=== PATIENT | male | born 1950 | race Caucasian/White ===

== ENCOUNTER 2021-07-11 09:36 | Inpatient (IN) | payer MEDICARE ==
[~2021-07-11] VITALS: Ht 185.4 cm; Wt 80.7 kg
[~2021-07-11 09:36] MED LIST: AMIODARONE HCL200 MG PO; ASPIRIN 325MG325 MG PO; CRESTOR 10 MG T10 MG PO; DIGOXIN125 MCG PO; FAMOTIDINE20 MG PO; FERROUS SULFAT325 M2 PO; FUROSEMIDE40 MG PO; INCRUSE ELLI62.5 MCG INH; JARDIANCE10 MG PO; LISINOPRIL5 MG PO; PROAIR HFA8.5 GM INH; ST. JOSEPH ASPI81 M1 PO; VITAMIN B-121000 MCG PO; ZESTRIL2.5 MG PO
[2021-07-11 10:31] LABS: HEMOGLOBIN 12.6 gm/dl (14.0-17.5); RED BLOOD COUNT 4.5 M/UL (4.20-5.50); WHITE BLOOD COUNT 7.3 K/UL (4.5-11.0)
[2021-07-11] MEDS ORDERED: SEROQUEL TAB 2525 MG PO (14:44)
[2021-07-11] MEDS ORDERED: ASPIRIN EC81 MG PO (14:46)
[2021-07-12 02:25] LABS: HEMOGLOBIN 11.8 gm/dl (14.0-17.5); RED BLOOD COUNT 4.26 M/UL (4.20-5.50); WHITE BLOOD COUNT 6.3 K/UL (4.5-11.0)
[2021-07-13 02:14] LABS: HEMOGLOBIN 12.5 gm/dl (14.0-17.5); RED BLOOD COUNT 4.57 M/UL (4.20-5.50); WHITE BLOOD COUNT 7.1 K/UL (4.5-11.0)
[2021-07-14 02:15] LABS: HEMOGLOBIN 11.7 gm/dl (14.0-17.5); RED BLOOD COUNT 4.21 M/UL (4.20-5.50)
[2021-07-15 02:20] LABS: HEMOGLOBIN 12.3 gm/dl (14.0-17.5); RED BLOOD COUNT 4.41 M/UL (4.20-5.50)
[2021-07-17] MEDS ORDERED: CLOPIDOGREL75 MG PO (12:54)
[2021-07-17] MEDS ORDERED: ATORVASTATIN CA20 MG PO (12:54)
== END 2021-07-17 14:50 | disposition home or self-care (01) | DRG 286 ==
LOC: ER1 09:36 → CCU 10:58 → PROG CARE 10:58 → CDU 10:58 → CCU 12:03 → PROG CARE 07-12 13:17
PROVIDERS: Emergency Medicine; Internal Medicine; Internal Medicine Nephrology; ADMIT Internal Medicine
PROC: 4A023N7 Measurement of Cardiac Sampling and Pressure, Left Heart, Percutaneous Approach (ICD-10-PCS; principal; 2021-07-11)
PROC: B2111ZZ Fluoroscopy of Multiple Coronary Arteries using Low Osmolar Contrast (ICD-10-PCS; 2021-07-11)
PROC: B2181ZZ Fluoroscopy of Left Internal Mammary Bypass Graft using Low Osmolar Contrast (ICD-10-PCS; 2021-07-11)
DX: R00.1 Bradycardia, unspecified (principal); G93.41 Metabolic encephalopathy; N17.0 Acute kidney failure with tubular necrosis; Z20.822 Contact with and (suspected) exposure to COVID-19; I13.0 Hypertensive heart and chronic kidney disease with heart failure and stage 1 through stage 4 chronic kidney disease, or unspecified chronic kidney disease; N17.9 Acute kidney failure, unspecified; I50.22 Chronic systolic (congestive) heart failure; D68.9 Coagulation defect, unspecified; I25.10 Atherosclerotic heart disease of native coronary artery without angina pectoris; N18.32 Chronic kidney disease, stage 3b; D50.9 Iron deficiency anemia, unspecified; I27.20 Pulmonary hypertension, unspecified; J43.9 Emphysema, unspecified; J60 Coalworker's pneumoconiosis; I25.5 Ischemic cardiomyopathy; I08.1 Rheumatic disorders of both mitral and tricuspid valves; K21.9 Gastro-esophageal reflux disease without esophagitis; E11.22 Type 2 diabetes mellitus with diabetic chronic kidney disease; I48.0 Paroxysmal atrial fibrillation; Z79.01 Long term (current) use of anticoagulants; Z95.1 Presence of aortocoronary bypass graft; Z79.82 Long term (current) use of aspirin; Z95.2 Presence of prosthetic heart valve; Z87.891 Personal history of nicotine dependence; Z88.8 Allergy status to other drugs, medicaments and biological substances; Z88.6 Allergy status to analgesic agent
CPT/HCPCS: 36415; 70450; 70551; 71045; 80048; 80053; 80061; 80162; 80307; 81001; 82533; 82550; 82553; 82570; 82962; 83735; 83880; 84156; 84439; 84443; 84484; 85025; 85027; 85610; 85730; 87086; 92507; 92526; 92610; 93005; 94640; 94664; 94760; 96374; 97110-GP-CQ; 97116; 97116-GP-CQ; 97162; 97165; 99285; C1769; J0461; J1265; J1644; J2060; J2370; J7030; J7040; Q9965; U0002

== ENCOUNTER → 2021-11-03 | Outpatient (CLI) | payer MEDICARE ==
[~2021-11-03] MED LIST changes: +ASPIRIN EC81 MG PO; +ATORVASTATIN CA20 MG PO; +CLOPIDOGREL75 MG PO; +SEROQUEL TAB 2525 MG PO
== END ==
LOC: HEART 5 12:22
DX: I25.10 Atherosclerotic heart disease of native coronary artery without angina pectoris (principal); I50.20 Unspecified systolic (congestive) heart failure; I27.20 Pulmonary hypertension, unspecified; I08.0 Rheumatic disorders of both mitral and aortic valves
CPT/HCPCS: 93306